=== PATIENT | female | born 1990 | race Hispanic/Latino ===

== ENCOUNTER 2019-02-05 17:36 | Emergency (ER) | payer MEDICAID, OTHER | END 2019-02-05 18:58 | disposition home or self-care (01) | LOC: EDH 17:36 | DX: J01.00 Acute maxillary sinusitis, unspecified (principal) ==

== ENCOUNTER 2019-02-18 17:14 | Emergency (ER) | payer OTHER ==
[2019-02-18 17:52] LABS: APPEARANCE,URINE Clear (CLEAR); BILIRUBIN,URINE Negative (NEGATIVE); COLOR,URINE Yellow (YELLOW); GLUCOSE, URINE (UA) Negative (NEGATIVE); KETONES,URINE Negative (NEGATIVE); LEUKOCYTE ESTERASE ,URINE Negative (NEGATIVE); NITRATE,URINE Negative (NEGATIVE); OCCULT BLOOD,URINE Small (NEGATIVE); PH,URINE 5.5 (5.0-8.0); PROTEIN,URINE Negative (NEGATIVE)
[2019-02-18 17:58] LABS: HCG,QUAL RESULT NEGATIVE (NEGATIVE)
[2019-02-18 18:13] LABS: BACTERIA,URINE Rare /HPF (None Seen); RBC,URINE 0-1 /HPF (0-1); SQUAMOUS EPITHELIAL CELL,UR Rare /HPF (0-2); WBC,URINE 0-1 /HPF (0-1)
== END 2019-02-18 18:43 | disposition home or self-care (01) ==
LOC: EDH 17:14
DX: N93.9 Abnormal uterine and vaginal bleeding, unspecified (principal); R10.9 Unspecified abdominal pain
CPT/HCPCS: 81001; 81025